=== PATIENT | female | born 1960 | race Caucasian/White ===

== ENCOUNTER 2016-05-24 17:14 | Emergency (ER) | payer OTHER ==
[2016-05-24 19:08] VITALS: BP 148/78
--- NOTE | 2016-05-24 19:22 | UC ---
Throat Pain/Nasal Bruce HPI - HPI Summary HPI Summary: TWO WEEKS OF SINUS CONGESTION GREEN THICK DISCHARGE. NONPRODUCTIVE COUGH AT NIGHT, OCCASIONALLY FEVERISH (NO KNOWN TEMP). HISTORY OF FREQUENT SINUS INFECTIONS - History of Current Complaint Chief Complaint: UCGeneralIllness Stated Complaint: SINUS CONGESTION Time Seen by Provider: 05/24/16 19:07 Hx Obtained From: Patient Onset/Duration: Gradual Onset, Lasting Weeks, Worse Since - PROGRSSIVE Severity: Moderate Cough: Nonproductive Associated Signs & Symptoms: Positive: Hoarseness, Sinus Discomfort, Nasal Discharge - Epiglottits Risk Factors Epiglottis Risk Factors: Negative - Allergies/Home Medications Allergies/Adverse Reactions: Allergies Allergy/AdvReac Type Severity Reaction Status Date / Time No Known Allergies Allergy Verified 05/24/16 19:01 Home Medications: Home Medications Diphenhydramine-Acetaminophen [Acetaminophen/Diphenhydra 25-500 mg] 05/24/16 [ History] PMH/Surg Hx/FS Hx/Imm Hx Previously Healthy: Yes Endocrine History Of: Denies: Diabetes Cardiovascular History Of: Denies: Hypertension, Pacemaker/ICD Respiratory History Of: Denies: Asthma - Surgical History Surgical History: None - Family History Known Family History: Positive: Respiratory Disease - TOBACCO ABUSE - Social History Occupation: Employed Full-time Lives: With Family Alcohol Use: Occasionally Substance Use Type: None Smoking Status (MU): Light Every Day Tobacco Smoker Cessation Counseling: Patient Advised to Stop Review of Systems Constitutional: Fever Skin: Negative Eyes: Negative ENT: Nasal Discharge Respiratory: Cough Cardiovascular: Negative Gastrointestinal: Negative Genitourinary: Negative Motor: Negative Neurovascular: Negative Musculoskeletal: Negative Neurological: Negative Psychological: Negative All Other Systems Reviewed And Are Negative: Yes Physical Exam Triage Information Reviewed: Yes Appearance: Well-Appearing, No Pain Distress, Well-Nourished Vital Signs: Initial Vital Signs Temp 97.8 F 05/24/16 19:02 Pulse 62 05/24/16 19:02 Resp 18 05/24/16 19:02 BP 148/78 05/24/16 19:02 Pulse Ox 100 05/24/16 19:02 Vital Signs Reviewed: Yes Eye Exam: Normal Eyes: Positive: Conjunctiva Clear ENT: Positive: Hearing grossly normal, Pharynx normal, TM dull Dental Exam: Normal Neck exam: Normal Neck: Positive: Supple, Nontender Respiratory Exam: Normal Respiratory: Positive: Chest non-tender, Lungs clear, Normal breath sounds, No respiratory distress, No accessory muscle use Cardiovascular Exam: Normal Cardiovascular: Positive: RRR, No Murmur, Pulses Normal, Brisk Capillary Refill Abdominal Exam: Normal Abdomen Description: Positive: Nontender, No Organomegaly Musculoskeletal Exam: Normal Musculoskeletal: Positive: Strength Intact, ROM Intact Neurological Exam: Normal Psychological Exam: Normal Psychological: Positive: Normal Response To Family Skin Exam: Normal Throat Pain/Nasal Course/Dx - Differential Dx/Diagnosis Differential Diagnosis/HQI/PQRI: Pharyngitis, Sinusitis, URI Provider Diagnoses: SINUSITIS Discharge - Discharge Plan Condition: Stable Disposition: HOME Prescriptions: Amoxicillin/Clavulanate TAB* [Augmentin TAB 875*] 875 mg PO BID #20 tab Benzonatate CAP* [Tessalon CAP*] 100 mg PO TID PRN #15 cap PRN Reason: Cough Fluticasone NASAL SPRAY 50MCG* [Flonase NASAL SPRAY 50MCG*] 2 spray BOTH NARES DAILY #1 btl Patient Education Materials: Sinusitis (ED)
== END 2016-05-24 19:20 | disposition home or self-care (01) ==
LOC: UCEAST 17:14
DX: J32.9 Chronic sinusitis, unspecified (principal); F17.210 Nicotine dependence, cigarettes, uncomplicated
CPT/HCPCS: 99202; G0463

== ENCOUNTER 2016-08-13 13:43 | Emergency (ER) | payer OTHER ==
--- NOTE | 2016-08-13 16:10 | UC ---
Throat Pain/Nasal Bruce HPI - HPI Summary HPI Summary: Seen here in May for "sinus infection," was rx augmentin and flonase. [place] like things improved then sx returned but unable to determine when. Now has been having thin nasal congestion, lots of sneezing, and puffy/pressured maxillary region for about 2 weeks. 3 days ago vomited, followed by 2 days of copious diarrhea (no blood, no dehydration). Did not take temperature, convinced she had the flu but no coughing or trouble breathing. Here because she is convinced she has another sinus infection. - History of Current Complaint Chief Complaint: UCRespiratory Stated Complaint: COUGH,V&D Time Seen by Provider: 08/13/16 15:28 Hx Obtained From: Patient ?: No Onset/Duration: Gradual Onset, Lasting Weeks Pain Intensity: 0 Pain Scale Used: Adult Non Verbal Cough: None Associated Signs & Symptoms: Positive: Sinus Discomfort, Nasal Discharge - Allergies/Home Medications Allergies/Adverse Reactions: Allergies Allergy/AdvReac Type Severity Reaction Status Date / Time No Known Allergies Allergy Verified 08/13/16 15:11 Home Medications: Home Medications Chlorpheniramine-Phenylephrine [Super Cold Tabs] 1 tab PO PRN 08/13/16 [History] PMH/Surg Hx/FS Hx/Imm Hx Endocrine History Of: Denies: Diabetes Cardiovascular History Of: Denies: Hypertension, Pacemaker/ICD Respiratory History Of: Denies: Asthma - Surgical History Surgical History: Yes Surgery Procedure, Year, and Place: [facility] SURGERY X2 FOR "ABNORMAL CELLS" IN [place] - Family History Known Family History: Positive: Respiratory Disease - TOBACCO ABUSE - Social History Occupation: Employed Full-time Alcohol Use: Occasionally Substance Use Type: None Smoking Status (MU): Current Every Day Smoker Type: Cigarettes Amount Used/How Often: 1 PPD Review of Systems Constitutional: Chills, Fatigue Skin: Negative Eyes: Negative ENT: Nasal Discharge Respiratory: Negative Cardiovascular: Negative Gastrointestinal: Vomiting, Diarrhea Genitourinary: Negative Motor: Negative Neurovascular: Negative Musculoskeletal: Myalgia Neurological: Negative Psychological: Negative All Other Systems Reviewed And Are Negative: Yes Physical Exam Triage Information Reviewed: Yes Appearance: Well-Appearing, No Pain Distress, Well-Nourished Vital Signs: Initial Vital Signs Temp 98.4 F 08/13/16 15:05 Pulse 73 04/10/17 15:05 Resp 16 08/13/16 15:05 BP 142/93 08/13/16 15:05 Pulse Ox 100 08/13/16 15:05 Vital Signs Reviewed: Yes Eye Exam: Normal Eyes: Positive: Conjunctiva Clear ENT: Positive: Normal ENT inspection, Hearing grossly normal, Pharynx normal, TMs normal, Other: - maxillary sinus tenderness Dental Exam: Normal Neck exam: Normal Neck: Positive: Supple, Nontender, No Lymphadenopathy Respiratory Exam: Normal Respiratory: Positive: Chest non-tender, Lungs clear, Normal breath sounds, No respiratory distress, No accessory muscle use Cardiovascular Exam: Normal Cardiovascular: Positive: RRR, No Murmur Musculoskeletal Exam: Normal Neurological Exam: Normal Psychological Exam: Normal Skin Exam: Normal Throat Pain/Nasal Course/Dx - Differential Dx/Diagnosis Provider Diagnoses: rhinosinusitis. acute gastroenteritis Discharge - Discharge Plan Condition: Stable Disposition: HOME Prescriptions: Azithromycin TAB* [Zithromax TAB*] 250 mg PO SEE INSTRUCTIONS #6 tab Patient Education Materials: Rhinosinusitis (ED), Gastroenteritis (ED) Referrals: Yolanda Rodriguez MD [Primary Care Provider] - [facility] [Outside] Additional Instructions: Please restart your fluticasone nasal spray (this is trade name flonase, and this is what Иван Murphy prescribed for your in May). You can call the physician referral center to find a new primary care provider.
[2016-08-13 16:13] VITALS: BP 118/63
== END 2016-08-13 16:04 | disposition home or self-care (01) ==
LOC: UCEAST 13:43
DX: J32.9 Chronic sinusitis, unspecified (principal); K52.9 Noninfective gastroenteritis and colitis, unspecified; F17.210 Nicotine dependence, cigarettes, uncomplicated
CPT/HCPCS: 99212; G0463